=== PATIENT | female | born 1985 | race Caucasian/White ===

== ENCOUNTER 2016-11-13 03:54 | Emergency (ER) | payer SELFPAY ==
[~2016-11-13] VITALS: Ht 172.7 cm; Wt 63.0 kg
[2016-11-13 03:56] VITALS: BP 131/87; PULSE 95; RESP 15; TEMP 97.2; O2SAT 99
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
--- NOTE | 2016-11-13 05:19 | RADRPT ---
EXAM DATE/TIME: 11/13/2016 04:40 [facility] COMPARISON: No previous studies available for comparison. INDICATIONS : Right hand pain, fall tonight. MEDICAL HISTORY : None. SURGICAL HISTORY : ORIF 2nd metacarpal 6 months ago. ENCOUNTER: Initial ACUITY: 1 day PAIN SCORE: 8/10 LOCATION: Right hand. FINDINGS: There is plate and screw fixation of the second metacarpal with fracture line still visible. No new f racture or dislocation. CONCLUSION: 1. Postoperative plate and screw fixation of the second metacarpal the fracture line remaining visibl e. No new fracture. Branden Bull MD on November 13, 2016 at 5:17 Board Certified Radiologist. This report was verified electronically.
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
== END 2016-11-13 09:29 | disposition home or self-care (01) ==
LOC: NEPB 03:54
DX: S09.90XA Unspecified injury of head, initial encounter (principal); S60.221A Contusion of right hand, initial encounter; W18.30XA Fall on same level, unspecified, initial encounter; F10.120 Alcohol abuse with intoxication, uncomplicated
CPT/HCPCS: 70450; 70486; 72125; 73130

== ENCOUNTER 2016-11-15 06:14 | Emergency (ER) | payer SELFPAY ==
[~2016-11-15] VITALS: Ht 167.6 cm; Wt 60.0 kg
[2016-11-15 06:17] VITALS: BP 117/87; PULSE 88; RESP 18; TEMP 97.5; O2SAT 98
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
[2016-11-15] MEDS ORDERED: ONDANSETRON HCL 4 MG/2 ML VIAL ONE (07:42)
== END 2016-11-15 08:53 | disposition home or self-care (01) ==
LOC: NEPE 06:14
DX: F10.129 Alcohol abuse with intoxication, unspecified (principal); Z59.0 Homelessness
CPT/HCPCS: 99284; J2405